=== PATIENT | male | born 1955 | race Two or more races ===

== ENCOUNTER 2024-02-25 13:01 | Outpatient (AMB) | payer MEDICARE, MEDICAID, SELFPAY ==
--- NOTE | 2024-02-25 13:12 | PD.ORTHCLVIS ---
Vital signs 02/25/24 13:13 Height 1.78 m Height Method Stated Weight 106.396 kg Weight Measurement Method Standing Scale BMI 33.5 BP 118/75 Blood Pressure Source Automatic Cuff Blood Pressure Location Right Upper Arm Position Sitting Respiration 18 Pulse 100 Pulse Source Monitor Temp 97.5 F Temp Source Temporal Artery Scan Pulse Oximetry (%) 97 Oxygen Delivery Method Room Air Med/Allergies Allergies & Medications Allergies codeine Allergy (Intermediate, Verified 02/25/24 13:13) Hives tramadol Allergy (Verified 02/25/24 13:13) rash Medication Reconciliation metformin 850 mg tablet 850 mg PO QDAY 06/04/23 [History Confirmed 02/25/24] calcium 315 mg (as citrate)-vitamin D3 6.25 mcg (250 unit) tablet (Citracal + Vitamin D Maximum) 1 tab PO BID 08/16/23 [History Confirmed 02/25/24] levothyroxine 125 mcg tablet 125 mcg PO DAILY 08/16/23 [History Confirmed 02/25/24] furosemide 40 mg tablet 40 mg PO DAILY 10/25/23 [History Confirmed 02/25/24] acetaminophen 500 mg tablet (Acetaminophen Extra Strength) 1,000 mg (2 x 500 mg) PO Q6H PRN pain #90 tabs 10/28/23 [Rx Confirmed 02/25/24] cyclobenzaprine 5 mg tablet 5 mg PO QHS PRN muscle spasm #30 tabs 12/17/23 [Rx Confirmed 02/25/24] apixaban 2.5 mg tablet (Eliquis) 5 mg PO BID 02/07/24 [History Confirmed 02/25/24] cholecalciferol (vitamin D3) 25 mcg (1,000 unit) tablet (Vitamin D3) 25 mcg PO QDAY 02/07/24 [History Confirmed 02/25/24] magnesium oxide 400 mg PO QDAY 02/07/24 [History Confirmed 02/25/24] acetaminophen 500 mg tablet (Acetaminophen Extra Strength) 1,000 mg (2 x 500 mg) PO Q6H PRN pain #90 tabs 02/10/24 [Rx Confirmed 02/25/24] doxycycline hyclate 100 mg tablet 100 mg PO BID #14 tabs 02/10/24 [Rx Confirmed 02/25/24] gabapentin 300 mg capsule 300 mg PO .qhs #30 caps 10/14/24 [Rx Confirmed 02/25/24] oxycodone 5 mg tablet 5 mg PO Q6H PRN pain #28 tabs 02/10/24 [Rx Confirmed 02/25/24] sennosides 8.6 mg-docusate sodium 50 mg tablet (Senna-S) 1 tab-cap PO QDAY #30 tabs 02/10/24 [Rx Confirmed 02/25/24] oxycodone 5 mg tablet 5 mg PO Q6H PRN pain #28 tabs 02/18/24 [Rx Confirmed 02/25/24] Subjective Visit Visit for: follow up visit and knee Immunization / Flu Flu Vaccine in the Last 12 Months: No Flu Vaccine Exclusion Criteria: No Exclusion Criteria History of Present Illness Chief complaint: 2 week post op Patient is doing well status post left total knee replacement. Will see him in 4 weeks. He is doing well with a walker Pain Pain level (0-10): 4 Ambulatory data Ambulatory device: walker Treatments Improvement with previous injections: No Improvement with PT: No Improvement with NSAIDS: no Review of Systems Review of Systems: All systems negative unless otherwise noted in HPI. Exam Exam Patient is in no acute distress and is cooperative with the examination today. Breathing is nonlabored. In no respiratory distress. Bilateral extremities were evaluated and demonstrates sensation intact to light touch. Palpable pedal pulses are present. No significant edema is present. Bilateral hips were examined. The patient has no pain with log roll of the hips. Internal rotation to 30 degrees and external rotation to 30 degrees is painless. Negative FADIR. Right knee incision is clean dry and intact Left knee incision is clean dry intact. Range of motion 0 to 100 degrees Assessment and Plan Problem List (1) Status post total knee replacement: Status: Acute Plan: Patient is doing well status post right total knee replacement and severe left knee osteoarthritis Status post left total knee replacement. Will order bilateral knee x-rays at the next visit. We will see him in 4 weeks Advanced Care Planning Discussion Advance care planning discussed with:: patient Office Procedures GNS Level of Care Nursing/Assessment Patient Status: Established Patient Nursing Assessment/Reassesment: Medication Reconciliation, Update PMH in EMR and Vital Signs Coordination of Care: Complex Care and Chronic Disease 1-5, Education Complex Pt/Fam, Consent,records obtained, informed consent, Results/Orders obtained and Staff clarify orders Special Needs: Language special needs Established Patient Charge Established Patient Point Assignment: 95 Established Patient Point Charge: EP Level 3 (80-115) Past Medical History Past Medical History Have you ever been diagnosed with any of the following: Neurological Problems Seizures: No Cardiology Problems Atrial Fibrillation: Yes Congestive Heart Failure: No Edema: No Varicose Veins: Yes Respiratory Problems Chronic Obstructive Pulmonary Disease (COPD): No Smoking: No Smoking Cessation Counseling: No Smoking Exposure: No Stomache/Intestinal Problems Diverticulitis: Yes Obesity: Yes Genital/Urinary Problems Renal Disease: No Kidney Stones: Yes Musculoskeletal Problems Arthritis: Yes Endocrine Problems Diabetes Mellitus Type 1: No Diabetes Mellitus Type 2: Yes Hypothyroidism: Yes Parathyroid Disease: Yes Pituitary Disease: Yes Other Problems Hospitalization: Yes (surgery, diverticulitis) Blood Transfusions: No Blood Transfusion Reaction: No Anesthesia Reactions: No Cancer: No Surgical History Thyroidectomy: Yes
[2024-02-25 13:13] VITALS: BP 118/75; PULSE 100; RESP 18; TEMP 36.4; O2SAT 97; BMI 33.5
== END 2024-02-25 13:38 | disposition home or self-care (01) ==
LOC: HODSRG 13:01
PROVIDERS: PCP Registered Nurse; Referring Provider Registered Nurse; Supervising Provider Orthopaedic Surgery Adult Reconstructive Orthopaedic Surgery; Visit Provider Orthopaedic Surgery Adult Reconstructive Orthopaedic Surgery
DX: Z47.1 Aftercare following joint replacement surgery (principal); Z96.651 Presence of right artificial knee joint; M17.12 Unilateral primary osteoarthritis, left knee; I48.91 Unspecified atrial fibrillation; E11.9 Type 2 diabetes mellitus without complications
CPT/HCPCS: 99213; G0463

== ENCOUNTER 2024-03-31 13:02 | Outpatient (AMB) | payer MEDICARE, MEDICAID, SELFPAY ==
[2024-03-31 13:29] VITALS: BP 145/84; PULSE 80; RESP 19; TEMP 36.3; O2SAT 94; BMI 33.5
--- NOTE | 2024-03-31 13:29 | PD.ORTHCLVIS ---
Vital signs 03/31/24 13:29 Height 1.78 m Height Method Stated Weight 106.141 kg Weight Measurement Method Standing Scale BMI 33.5 BP 145/84 H Blood Pressure Source Automatic Cuff Blood Pressure Location Left Upper Arm Position Sitting Respiration 19 Pulse 80 Pulse Source Monitor Temp 97.4 F Temp Source Temporal Artery Scan Pulse Oximetry (%) 94 L Oxygen Delivery Method Room Air Med/Allergies Allergies & Medications Allergies codeine Allergy (Intermediate, Verified 03/31/24 13:30) Hives tramadol Allergy (Verified 03/31/24 13:30) rash Medication Reconciliation metformin 850 mg tablet 850 mg PO QDAY 06/04/23 [History Confirmed 03/31/24] calcium 315 mg (as citrate)-vitamin D3 6.25 mcg (250 unit) tablet (Citracal + Vitamin D Maximum) 1 tab PO BID 08/16/23 [History Confirmed 03/31/24] levothyroxine 125 mcg tablet 125 mcg PO DAILY 08/16/23 [History Confirmed 03/31/24] furosemide 40 mg tablet 40 mg PO DAILY 10/25/23 [History Confirmed 03/31/24] acetaminophen 500 mg tablet (Acetaminophen Extra Strength) 1,000 mg (2 x 500 mg) PO Q6H PRN pain #90 tabs 10/28/23 [Rx Confirmed 03/31/24] cyclobenzaprine 5 mg tablet 5 mg PO QHS PRN muscle spasm #30 tabs 12/17/23 [Rx Confirmed 03/31/24] apixaban 2.5 mg tablet (Eliquis) 5 mg PO BID 02/07/24 [History Confirmed 03/31/24] cholecalciferol (vitamin D3) 25 mcg (1,000 unit) tablet (Vitamin D3) 25 mcg PO QDAY 02/07/24 [History Confirmed 03/31/24] magnesium oxide 400 mg PO QDAY 02/07/24 [History Confirmed 03/31/24] acetaminophen 500 mg tablet (Acetaminophen Extra Strength) 1,000 mg (2 x 500 mg) PO Q6H PRN pain #90 tabs 02/10/24 [Rx Confirmed 03/31/24] doxycycline hyclate 100 mg tablet 100 mg PO BID #14 tabs 02/10/24 [Rx Confirmed 03/31/24] gabapentin 300 mg capsule 300 mg PO .qhs #30 caps 02/10/24 [Rx Confirmed 03/31/24] oxycodone 5 mg tablet 5 mg PO Q6H PRN pain #28 tabs 02/10/24 [Rx Confirmed 03/31/24] sennosides 8.6 mg-docusate sodium 50 mg tablet (Senna-S) 1 tab-cap PO QDAY #30 tabs 02/10/24 [Rx Confirmed 03/31/24] oxycodone 5 mg tablet 5 mg PO Q6H PRN pain #28 tabs 02/18/24 [Rx Confirmed 03/31/24] Subjective Visit Visit for: follow up visit and post op #2 Immunization / Flu Flu Vaccine in the Last 12 Months: No Flu Vaccine Exclusion Criteria: No Exclusion Criteria History of Present Illness Chief complaint: XRAY RESULTS FOLLOW UP Patient is doing well status post left total knee replacement. Will see him in 2-3 months. He is doing well with a cane Pain Pain level (0-10): 3 Pain duration: WITH MOVEMENT Pain location: inside (medial) Pain quality: aching Pain timing: increases with activity Ambulatory data Ambulatory device: cane Treatments Improvement with previous injections: No Improvement with PT: No Improvement with NSAIDS: no Review of Systems Review of Systems: All systems negative unless otherwise noted in HPI. Exam Exam Patient is in no acute distress and is cooperative with the examination today. Breathing is nonlabored. In no respiratory distress. Bilateral extremities were evaluated and demonstrates sensation intact to light touch. Palpable pedal pulses are present. No significant edema is present. Bilateral hips were examined. The patient has no pain with log roll of the hips. Internal rotation to 30 degrees and external rotation to 30 degrees is painless. Negative FADIR. Right knee incision is clean dry and intact Left knee incision is clean dry intact. Range of motion 0 to 100 degrees X-rays demonstrate cementless total knee replacement in good alignment position Assessment and Plan Problem List (1) Status post total knee replacement: Status: Acute Plan: Patient is doing well status post right total knee replacement and severe left knee osteoarthritis Status post left total knee replacement. Will order bilateral knee x-rays at the next visit. We will see him in 6 weeks We will see the patient back in approximately 6 weeks Advanced Care Planning Discussion Advance care planning discussed with:: patient Office Procedures GNS Level of Care Nursing/Assessment Patient Status: Established Patient Nursing Assessment/Reassesment: Medication Reconciliation, Update PMH in EMR and Vital Signs Coordination of Care: Complex Care and Chronic Disease 1-5, Education Complex Pt/Fam, Consent,records obtained, informed consent, Results/Orders obtained and Staff clarify orders Special Needs: Language special needs Established Patient Charge Established Patient Point Assignment: 95 Established Patient Point Charge: EP Level 3 (80-115) Past Medical History Past Medical History Have you ever been diagnosed with any of the following: Neurological Problems Seizures: No Cardiology Problems Atrial Fibrillation: Yes Congestive Heart Failure: No Edema: No Varicose Veins: Yes Respiratory Problems Chronic Obstructive Pulmonary Disease (COPD): No Smoking: No Smoking Cessation Counseling: No Smoking Exposure: No Stomache/Intestinal Problems Diverticulitis: Yes Obesity: Yes Genital/Urinary Problems Renal Disease: No Kidney Stones: Yes Musculoskeletal Problems Arthritis: Yes Endocrine Problems Diabetes Mellitus Type 1: No Diabetes Mellitus Type 2: Yes Hypothyroidism: Yes Parathyroid Disease: Yes Pituitary Disease: Yes Other Problems Hospitalization: Yes (surgery, diverticulitis) Blood Transfusions: No Blood Transfusion Reaction: No Anesthesia Reactions: No Cancer: No Surgical History Thyroidectomy: Yes
== END 2024-03-31 13:51 | disposition home or self-care (01) ==
LOC: HODSRG 13:02
PROVIDERS: PCP Registered Nurse; Referring Provider Registered Nurse; Supervising Provider Orthopaedic Surgery Adult Reconstructive Orthopaedic Surgery; Visit Provider Orthopaedic Surgery Adult Reconstructive Orthopaedic Surgery
DX: Z96.651 Presence of right artificial knee joint (principal); M17.12 Unilateral primary osteoarthritis, left knee; E11.9 Type 2 diabetes mellitus without complications; I48.91 Unspecified atrial fibrillation; E03.9 Hypothyroidism, unspecified
CPT/HCPCS: 99213; G0463

== ENCOUNTER 2024-07-09 08:11 | Outpatient (AMB) | payer MEDICARE, MEDICAID, SELFPAY ==
[2024-07-09 08:31] VITALS: BP 118/76; PULSE 55; RESP 18; TEMP 35.7; O2SAT 96; BMI 32.8
--- NOTE | 2024-07-09 08:31 | PD.ORTHCLVIS ---
Vital signs 07/09/24 08:31 Height 1.78 m Height Method Stated Weight 104.071 kg Weight Measurement Method Standing Scale BMI 32.8 BP 118/76 Blood Pressure Source Automatic Cuff Blood Pressure Location Right Upper Arm Position Sitting Respiration 18 Pulse 55 L Pulse Source Monitor Temp 96.2 F L Temp Source Temporal Artery Scan Pulse Oximetry (%) 96 Oxygen Delivery Method Room Air Med/Allergies Allergies & Medications Allergies codeine Allergy (Intermediate, Verified 07/09/24 08:32) Hives tramadol Allergy (Verified 07/09/24 08:32) rash Medication Reconciliation metformin 850 mg tablet 850 mg PO QDAY 06/04/23 [History Confirmed 03/31/24] calcium 315 mg (as citrate)-vitamin D3 6.25 mcg (250 unit) tablet (Citracal + Vitamin D Maximum) 1 tab PO BID 08/16/23 [History Confirmed 03/31/24] levothyroxine 125 mcg tablet 125 mcg PO DAILY 08/16/23 [History Confirmed 03/31/24] furosemide 40 mg tablet 40 mg PO DAILY 10/25/23 [History Confirmed 03/31/24] cyclobenzaprine 5 mg tablet 5 mg PO QHS PRN muscle spasm #30 tabs 12/17/23 [Rx Confirmed 03/31/24] apixaban 2.5 mg tablet (Eliquis) 5 mg PO BID 02/07/24 [History Confirmed 03/31/24] cholecalciferol (vitamin D3) 25 mcg (1,000 unit) tablet (Vitamin D3) 25 mcg PO QDAY 02/07/24 [History Confirmed 03/31/24] magnesium oxide 400 mg PO QDAY 02/07/24 [History Confirmed 03/31/24] doxycycline hyclate 100 mg tablet 100 mg PO BID #14 tabs 02/10/24 [Rx Confirmed 03/31/24] gabapentin 300 mg capsule 300 mg PO .qhs #30 caps 02/10/24 [Rx Confirmed 03/31/24] Exam Exam Patient is in no acute distress and is cooperative with the examination today. Breathing is nonlabored. In no respiratory distress. Bilateral extremities were evaluated and demonstrates sensation intact to light touch. Palpable pedal pulses are present. No significant edema is present. Bilateral hips were examined. The patient has no pain with log roll of the hips. Internal rotation to 30 degrees and external rotation to 30 degrees is painless. Negative FADIR. Right knee incision is clean dry and intact Left knee incision is clean dry intact. Range of motion 0 to 100 degrees X-rays demonstrate cementless total knee replacement in good alignment position Assessment and Plan Problem List (1) Status post total knee replacement: Status: Acute Plan: Patient is doing well status post right total knee replacement and severe left knee osteoarthritis Status post left total knee replacement. Patient is doing well. His x-rays look great. We will see him in 6 months Advanced Care Planning Discussion Advance care planning discussed with:: patient Office Procedures GNS Level of Care Nursing/Assessment Patient Status: Established Patient Nursing Assessment/Reassesment: Medication Reconciliation, Update PMH in EMR and Vital Signs Coordination of Care: Complex Care and Chronic Disease 1-5, Education Complex Pt/Fam, Consent,records obtained, informed consent, Results/Orders obtained and Staff clarify orders Special Needs: Language special needs Established Patient Charge Established Patient Point Assignment: 95 Established Patient Point Charge: EP Level 3 (80-115) MA Intake Visit Data Collection New Patient or Established: Established Patient (seen at [facility] within 3 years) Reason for Visit:: POST OP Seen by Clinical Staff ONLY (RN/MA): No Verbal consent obtained for Telemed visit?: No Face Burler Required: Yes PCP or OBGYN visit in last 3 months: Yes Hx Now: No Do You Feel Safe at Home: Yes Authorities Contacted: N/A Questionairres Past Medical History Past Medical History Have you ever been diagnosed with any of the following: Neurological Problems Seizures: No Cardiology Problems Atrial Fibrillation: Yes Congestive Heart Failure: No Edema: No Varicose Veins: Yes Respiratory Problems Chronic Obstructive Pulmonary Disease (COPD): No Smoking: No Smoking Cessation Counseling: No Smoking Exposure: No Stomache/Intestinal Problems Diverticulitis: Yes Obesity: Yes Genital/Urinary Problems Renal Disease: No Kidney Stones: Yes Musculoskeletal Problems Arthritis: Yes Endocrine Problems Diabetes Mellitus Type 1: No Diabetes Mellitus Type 2: Yes Hypothyroidism: Yes Parathyroid Disease: Yes Pituitary Disease: Yes Other Problems Hospitalization: Yes (surgery, diverticulitis) Blood Transfusions: No Blood Transfusion Reaction: No Anesthesia Reactions: No Cancer: No Surgical History Thyroidectomy: Yes Subjective Visit Visit for: follow up visit, post op #2 and knee Immunization / Flu Flu Vaccine in the Last 12 Months: Yes Flu Vaccine Exclusion Criteria: Already Received History of Present Illness Chief complaint: POST OP FOLLOW UP Patient is 6 and 9 months status post bilateral total knee replacements. He is doing well. He has minimal pain. Personal History Occupation: UNEMPLOYED Red flag PMH: Blood thinners and BMI BMI Counceling provided: Yes Pain Pain level (0-10): 6 Pain duration: WITH MOVEMENT Pain location: anterior Pain quality: dull and aching Pain timing: increases with activity Associated signs & symptoms: none Ambulatory data Ambulatory device: none Treatments Improvement with previous injections: No Improvement with PT: No Improvement with NSAIDS: no Review of Systems Review of Systems: All systems negative unless otherwise noted in HPI.
== END 2024-07-09 08:56 | disposition home or self-care (01) ==
LOC: HODSRG 08:11
PROVIDERS: PCP Registered Nurse; Referring Provider Registered Nurse; Supervising Provider Orthopaedic Surgery Adult Reconstructive Orthopaedic Surgery; Visit Provider Orthopaedic Surgery Adult Reconstructive Orthopaedic Surgery
DX: M17.12 Unilateral primary osteoarthritis, left knee (principal); I48.91 Unspecified atrial fibrillation; Z96.653 Presence of artificial knee joint, bilateral
CPT/HCPCS: 99213; G0463

== ENCOUNTER → 2025-01-18 | Outpatient (CLI) | payer MEDICARE, MEDICAID, SELFPAY ==
--- NOTE | 2025-01-18 09:04 | XR_ITS ---
Examination: Bilateral knees 2 views Right lateral knee left lateral knee 2 views Right axial knee left axial knee 2 views TECHNIQUE: Bilateral AP knees standing single view, bilateral PA knees standing single view flexion Standing right lateral knee left lateral knee 2 views Right axial knee left axial knee 2 views total 6 views Date and time: January 18, 2025, 0928 hours INDICATIONS: Bilateral knee pain several months. FINDINGS: Moderate osteopenia. Bilateral knee arthroplasties. Satisfactory alignment. No fractures. No loosening of the prosthetic components. No patellar dislocations IMPRESSION: Bilateral total knee arthroplasties with satisfactory alignment
== END | disposition home or self-care (01) ==
PROVIDERS: PCP Internal Medicine; Referring Provider Orthopaedic Surgery Adult Reconstructive Orthopaedic Surgery; Visit Provider Orthopaedic Surgery Adult Reconstructive Orthopaedic Surgery
DX: M25.562 Pain in left knee (principal); M25.561 Pain in right knee; Z96.653 Presence of artificial knee joint, bilateral
CPT/HCPCS: 73564

== ENCOUNTER 2025-02-23 10:10 | Outpatient (AMB) | payer MEDICARE, MEDICAID, SELFPAY ==
--- NOTE | 2025-02-23 10:33 | PD.ORTHCLVIS ---
Vital signs 02/23/25 10:34 Height 1.78 m Height Method Measured Weight 111.669 kg Weight Measurement Method Standing Scale BMI 35.2 BP 114/70 Blood Pressure Source Automatic Cuff Blood Pressure Location Left Upper Arm Position Sitting Respiration 18 Pulse 65 Pulse Source Monitor Temp 97.2 F Temp Source Temporal Artery Scan Pulse Oximetry (%) 94 L Oxygen Delivery Method Room Air Med/Allergies Allergies & Medications Allergies codeine Allergy (Intermediate, Verified 02/23/25 10:34) Hives tramadol Allergy (Verified 02/23/25 10:34) rash Medication Reconciliation metformin 850 mg tablet 850 mg PO QDAY 06/04/23 [History Confirmed 02/23/25] calcium 315 mg (as citrate)-vitamin D3 6.25 mcg (250 unit) tablet (Citracal + Vitamin D Maximum) 1 tab PO BID 08/16/23 [History Confirmed 02/23/25] levothyroxine 125 mcg tablet 125 mcg PO DAILY 08/16/23 [History Confirmed 02/23/25] furosemide 40 mg tablet 40 mg PO DAILY 10/25/23 [History Confirmed 02/23/25] cyclobenzaprine 5 mg tablet 5 mg PO QHS PRN muscle spasm #30 tabs 12/17/23 [Rx Confirmed 02/23/25] apixaban 2.5 mg tablet (Eliquis) 5 mg PO BID 02/07/24 [History Confirmed 02/23/25] cholecalciferol (vitamin D3) 25 mcg (1,000 unit) tablet (Vitamin D3) 25 mcg PO QDAY 02/07/24 [History Confirmed 02/23/25] magnesium oxide 400 mg PO QDAY 02/07/24 [History Confirmed 02/23/25] doxycycline hyclate 100 mg tablet 100 mg PO BID #14 tabs 02/10/24 [Rx Confirmed 02/23/25] gabapentin 300 mg capsule 300 mg PO .qhs #30 caps 02/10/24 [Rx Confirmed 02/23/25] Exam Exam Patient is in no acute distress and is cooperative with the examination today. Breathing is nonlabored. In no respiratory distress. Bilateral extremities were evaluated and demonstrates sensation intact to light touch. Palpable pedal pulses are present. No significant edema is present. Bilateral hips were examined. The patient has no pain with log roll of the hips. Internal rotation to 30 degrees and external rotation to 30 degrees is painless. Negative FADIR. Right knee incision is clean dry and intact Left knee incision is clean dry intact. Range of motion 0 to 100 degrees X-rays demonstrate cementless total knee replacement in good alignment position Assessment and Plan Problem List (1) Status post total knee replacement: Status: Acute Plan: Patient is doing well status post right total knee replacement and severe left knee osteoarthritis Status post left total knee replacement. Patient is doing well. His x-rays look great. We will see him in 1-2 years for routine followup Advanced Care Planning Discussion Advance care planning discussed with:: patient Office Procedures GNS Level of Care Nursing/Assessment Patient Status: Established Patient Nursing Assessment/Reassesment: Medication Reconciliation, Update PMH in EMR and Vital Signs Coordination of Care: Complex Care and Chronic Disease 1-5, Education Complex Pt/Fam, Consent,records obtained, informed consent, Results/Orders obtained and Staff clarify orders Established Patient Charge Established Patient Point Assignment: 95 Established Patient Point Charge: EP Level 3 (80-115) MA Intake Visit Data Collection New Patient or Established: Established Patient (seen at [facility] within 3 years) Reason for Visit:: 1 YEAR TKA Seen by Clinical Staff ONLY (RN/MA): No Verbal consent obtained for Telemed visit?: No Cotton Dispatcher Required: Yes PCP or OBGYN visit in last 3 months: Yes Hx Now: No Do You Feel Safe at Home: Yes Authorities Contacted: N/A Questionairres Past Medical History Past Medical History Have you ever been diagnosed with any of the following: Neurological Problems Seizures: No Cardiology Problems Atrial Fibrillation: Yes Congestive Heart Failure: No Edema: No Varicose Veins: Yes Respiratory Problems Chronic Obstructive Pulmonary Disease (COPD): No Smoking: No Smoking Cessation Counseling: No Smoking Exposure: No Stomache/Intestinal Problems Diverticulitis: Yes Obesity: Yes Genital/Urinary Problems Renal Disease: No Kidney Stones: Yes Musculoskeletal Problems Arthritis: Yes Endocrine Problems Diabetes Mellitus Type 1: No Diabetes Mellitus Type 2: Yes Hypothyroidism: Yes Parathyroid Disease: Yes Pituitary Disease: Yes Other Problems Hospitalization: Yes (surgery, diverticulitis) Blood Transfusions: No Blood Transfusion Reaction: No Anesthesia Reactions: No Cancer: No Surgical History Thyroidectomy: Yes Subjective Visit Visit for: follow up visit and knee Immunization / Flu Flu Vaccine in the Last 12 Months: Yes Flu Vaccine Exclusion Criteria: Already Received History of Present Illness Chief complaint: 1 YEAR TKA Patient is 12 months status post bilateral total knee replacements. He is doing well. He has minimal pain. Personal History Occupation: UNEMPLOYED Red flag PMH: Blood thinners and BMI BMI Counceling provided: Yes Pain Pain level (0-10): 0 Pain duration: WITH MOVEMENT Pain location: anterior Pain quality: dull and aching Pain timing: increases with activity Associated signs & symptoms: none Ambulatory data Ambulatory device: none Treatments Improvement with previous injections: No Improvement with PT: No Improvement with NSAIDS: no Review of Systems Review of Systems: All systems negative unless otherwise noted in HPI.
[2025-02-23 10:34] VITALS: BP 114/70; PULSE 65; RESP 18; TEMP 36.2; O2SAT 94; BMI 35.2
== END 2025-02-23 10:51 | disposition home or self-care (01) ==
LOC: HODSRG 10:10
PROVIDERS: PCP Internal Medicine; Referring Provider Internal Medicine; Supervising Provider Orthopaedic Surgery Adult Reconstructive Orthopaedic Surgery; Visit Provider Orthopaedic Surgery Adult Reconstructive Orthopaedic Surgery
DX: Z47.1 Aftercare following joint replacement surgery (principal); Z96.653 Presence of artificial knee joint, bilateral; E11.9 Type 2 diabetes mellitus without complications; Z79.84 Long term (current) use of oral hypoglycemic drugs; E66.9 Obesity, unspecified; Z68.35 Body mass index [BMI] 35.0-35.9, adult
CPT/HCPCS: 99213; G0463